=== PATIENT | female | born 2000 | race Caucasian/White ===

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

== ENCOUNTER 2018-03-22 18:16 | Emergency (ER) | payer BC ==
--- NOTE | 2018-03-22 18:59 | PDOC ---
Rapid Medical Evaluation Time Seen by Provider: 03/22/18 18:54 Medical Evaluation: Allergies Allergy/AdvReac Type Severity Reaction Status Date / Time No Known Allergies Allergy Unverified 07/02/17 00:33 03/22/18 18:55 Pt reports a cyst on her L labia starting 4 days ago. Hurts to walk. States it also hurts to touch. Took Tylenol for pain with little relief of symptoms. Exam: Ambulatory, NAD Orders: Nothing Pt to proceed to ED for further evaluation Discharge Disposition - Diagnosis Cyst - Referrals - Patient Instructions - Post Discharge Activity
[2018-03-22 19:00] VITALS: BP 119/88; PULSE 103; TEMP 99; BMI 33.6
--- NOTE | 2018-03-22 19:29 | PDOC ---
History of Present Illness - General Chief Complaint: Abscess Boil Stated Complaint: PAIN Time Seen by Provider: 03/22/18 18:54 History Source: Patient Exam Limitations: Clinical Condition - History of Present Illness Initial Comments: 03/22/18 19:24 Patient with no significant past medical history present with complain of swelling and redness to left vulvar which has been worsening the last 3 days. Denies vaginal discharge or rash. Patient report shaves her vulvar area. Denies any other symptoms Timing/Duration: other (3 days) Past History - Past Medical History Allergies/Adverse Reactions: Allergies Allergy/AdvReac Type Severity Reaction Status Date / Time No Known Allergies Allergy Unverified 03/22/18 18:58 Home Medications: Ambulatory Orders Norgestimate-Ethinyl Estradiol [Sprintec 28 Day Tablet] 1 each PO DAILY Sertraline HCl [Zoloft] 100 mg PO DAILY 07/02/17 Cephalexin [Keflex] 500 mg PO BID 7 Days #14 capsule 03/22/18 Ibuprofen 800 mg PO Q8H PRN #20 tablet 03/22/18 Sulfamethoxazole/Trimethoprim [Bactrim Ds -] 1 tab PO BID #14 tablet 03/22/18 COPD: No Psychiatric Problems: Yes (ANXIETY) - Immunization History Immunization Up to Date: Yes - Suicide/Smoking/Psychosocial Hx Smoking History: Never smoked Hx Alcohol Use: No Drug/Substance Use Hx: No Review of Systems - Review of Systems Able to Perform ROS?: Yes Is the patient limited Burmese proficient: No Constitutional: No: Chills, Fever Respiratory: No: Symptoms reported Cardiac (ROS): No: Symptoms Reported ABD/GI: No: Symptoms Reported : Yes: Pain (left vulva), Other (left vulva swelling and pain). No: Burning, Dysuria, Discharge, Urgency Integumentary: Yes: Erythema (left vulva area), Other (swelling to left vulva area) *Physical Exam - Vital Signs Last Vital Signs Temp Pulse Resp BP Pulse Ox 99.0 F 103 H 18 119/88 100 03/22/18 18:58 03/22/18 18:58 03/22/18 18:58 03/22/18 18:58 03/22/18 18:58 - Physical Exam Comments: 03/22/18 19:30 GENERAL: Well developed, well nourished. Awake and alert. No acute distress. CARDIOVASCULAR: Regular rate and rhythm. No murmurs, rubs, or gallops. Distal pulses are 2+ and symmetric. PULMONARY: No evidence of respiratory distress. Lungs clear to auscultation bilaterally. No wheezing, rales or rhonchi. ABDOMINAL: Soft. Non-tender. Non-distended. No rebound or guarding. No organomegaly. Normoactive bowel sounds. SKIN: Moderate erythema to left side of vulva and mons pubis with mild vulva swelling. No induration or visible abscess or cyst. NEUROLOGICAL: Alert, awake, appropriate. Gait is normal without ataxia. PSYCHIATRIC: Cooperative. Good eye contact. Appropriate mood and affect. General Appearance: Yes: Nourished, Appropriately Dressed. No: Apparent Distress Medical Decision Making - Medical Decision Making 03/22/18 19:32 Patient with no significant past medical history present with complain of vulvar pain, swelling and redness. Exam significant for moderate erythema to left side of vulvar and mild swelling consistent with cellulitis. No evidence of abscess or induration. Patient is stable for outpatient treatment on Keflex and Bactrim with Motrin for pain and [facility] follow-up *DC/Admit/Observation/Transfer Diagnosis at time of Disposition: Vulval cellulitis - Discharge Dispostion Disposition: HOME Condition at time of disposition: Stable Decision to Admit order: No - Prescriptions Prescriptions: Cephalexin [Keflex] 500 mg PO BID 7 Days #14 capsule Ibuprofen 800 mg PO Q8H PRN #20 tablet PRN Reason: pain Sulfamethoxazole/Trimethoprim [Bactrim Ds -] 1 tab PO BID #14 tablet - Referrals Referrals: Samir Suh MD [Staff Physician] - - Patient Instructions Printed Discharge Instructions: Cellulitis Additional Instructions: Take medications as prescribed. Follow up with preferred RESIDENTIAL DIRECTOR for reassessment as soon as possible 3-4 days - Post Discharge Activity
== END 2018-03-22 19:37 | disposition home or self-care (01) ==
LOC: JERFT 18:16
DX: N76.2 Acute vulvitis (principal)
CPT/HCPCS: 99281-25

== ENCOUNTER 2018-08-12 22:15 | Emergency (ER) | payer BC ==
--- NOTE | 2018-08-12 22:55 | PDOC ---
History of Present Illness - General Chief Complaint: Tachycardia Stated Complaint: POSSIBLE ALLERGIC REACTION Time Seen by Provider: 08/12/18 22:35 History Source: Patient, EMS, Old Records Exam Limitations: No Limitations - History of Present Illness Initial Comments: HPI: 17 y/o female BIBEMS to [facility] complaining of rapid heart rate, palpitations, and an indescribable sensation. Reports she was drinking a coconut alcoholic drink that her boyfriend made for her at the [employer], where he works as a route delivery driver. She felt her throat itch and her face became flushed, so an ambulance was called. The EMS crew administered 50mg of Benadryl. Shortly after receiving the medication, she developed the palpitations, shortness of breath, and the indescribable sensation. Per EMS report, the station engineer main line appreciated SVT on the monitor and administered 6m of Adenosine. The rate slowed to sinus tachycardia. No EKG strip was provided by crew. At time of interview, pt reports feeling mild palpitations but much improved over symptoms in the ambulance. Denies a h/o of similar symptoms. No personal or familial history of arrhythmia. No familial history of sudden or unexplained swimming deaths. Pt denies any known medication, food, or environmental allergies. Pt denies persistent symptoms of breathlessness. Takes OCP. No recent travel or periods of immobilization. No leg swelling or tenderness. No personal or familial history of blood clots. Social Hx: - EtoH: Drank tonight - Tobacco: Denies - Street Drugs: Denies using marijuana in the past several months. Denies any additional substances tonight. Medical Hx: - Anxiety, managed with Lexapro. Surgical Hx: - None Past History - Past Medical History Allergies/Adverse Reactions: Allergies Allergy/AdvReac Type Severity Reaction Status Date / Time No Known Allergies Allergy Verified 08/12/18 22:37 Home Medications: Ambulatory Orders Norgestimate-Ethinyl Estradiol [Sprintec 28 Day Tablet] 1 each PO DAILY Sertraline HCl [Zoloft] 100 mg PO DAILY 07/02/17 Cephalexin [Keflex] 500 mg PO BID 7 Days #14 capsule 03/22/18 Ibuprofen 800 mg PO Q8H PRN #20 tablet 03/22/18 Sulfamethoxazole/Trimethoprim [Bactrim Ds -] 1 tab PO BID #14 tablet 03/22/18 COPD: No Psychiatric Problems: Yes (ANXIETY) - Immunization History Immunization Up to Date: Yes - Suicide/Smoking/Psychosocial Hx Smoking History: Never smoked Have you smoked in the past 12 months: No Information on smoking cessation initiated: No Hx Alcohol Use: Yes (Socially) Drug/Substance Use Hx: No Review of Systems - Review of Systems Able to Perform ROS?: Yes Comments:: In addition to that documented in the HPI above, the additional ROS was obtained : Constitutional: Denies fevers or chills Head: Denies vision changes ENMT: Denies sore throat CV: Per HPI Resp: Denies SOB at time of interview GI: Denies vomiting or diarrhea : Denies painful urination MSK: Denies recent trauma Skin: Denies new rashes Neuro: Denies new numbness or tingling or weakness Endocrine: Denies polyuria Heme: Denies bleeding or bruising *Physical Exam - Vital Signs Last Vital Signs Temp Pulse Resp BP Pulse Ox 98.8 F 142 H 27 H 145/79 100 08/12/18 22:15 08/12/18 22:15 08/12/18 22:15 08/12/18 22:15 08/12/18 22:15 - Physical Exam Comments: Constitutional: Well-developed, well-nourished adult female in no acute distress or obvious discomfort. Obese body habitus. Found semi-fowlers on hospital bed. Alert and oriented x4. Answered all questions appropriately and completely. Speech was non-labored, non-pressured. Head: Normocephalic. No obvious external signs of trauma. Eyes: PERRL. Sclerae white.. Ears: Hearing grossly intact. Nose: No nasal discharge. Neck: Supple, trachea is midline. Cardiovascular / Chest: Tachycardic rate and regular rhythm. No murmur, rubs, clicks, or gallops. Peripheral pulses: radial pulses full. Respiratory: Breathing unlabored. Equal chest rise and fall. Clear to auscultation bilaterally. No stridor, no wheezing, no rhonchi. Gastrointestinal: abdomen is soft, non-tender, non-distended. Neuro: Alert and oriented. Moving all four extremities spontaneously. Gait normal. Observed walking unassisted through the department without difficulty. Skin: Warm, dry, and intact. Psych: Affect: appropriate. Mood: normal. Moderate Sedation - Procedure Monitoring Vital Signs: Procedure Monitoring Vital Signs Temperature 98.8 F 08/12/18 22:15 Pulse Rate 142 H 08/12/18 22:15 Respiratory Rate 27 H 08/12/18 22:15 Blood Pressure 145/79 08/12/18 22:15 O2 Sat by Pulse Oximetry (%) 100 08/12/18 22:15 Medical Decision Making - Medical Decision Making EKG Strips sent by [facility]: Initial EKG: Final EKG: MDM: *Reviewed vital signs, nursing notes, and prior visit documentation (if available). 17 y/o female presenting with tachycardia and resolving palpitations, SOB, and indescribable sensation after receiving Benadryl and Adenosine. Triage vitals remarkable for tachycardia without hypotension. Sinus tachycardia noted on the electronic device monitor. Physical exam as described above. Suspect possible adverse reaction to Benadryl. Will obtain UDS and UPreg. Ordered EKG and IVFB. Will trend vitals and monitor cardiac activity on continuous telemetry. 12-lead EKG revealed a sinus tachycardia with a ventricular rate of 117 BPM. Normal axis. Normal intervals. No ST segment elevation or depression. No delta waves. No pathologic Q waves. No signs of Brugada. [facility] was able provide a video of pts EKG. Initial rhythm prior to Adenosine was a sinus tachycardia at a rate estimated to be 160-170 bpm. No strip showing rhythm change during medication administration. Last strip showed a sinus tachycardia at rate estimated to be 120 bpm. (See above) UDS kidd negative. UPreg negative. Tachycardia continues to improve. Will continue to monitor. Pt signed out to resident Dr. Vera after she was verbally appraised of the pts HPI, current ED course, and plan of management. Will follow tend of vitals. *DC/Admit/Observation/Transfer Diagnosis at time of Disposition: Tachycardia - Discharge Dispostion Condition at time of disposition: Fair - Referrals - Patient Instructions - Post Discharge Activity
[2018-08-12 22:59] VITALS: BP 145/79; PULSE 142; TEMP 98.8; BMI 35.4
[2018-08-12] MEDS ORDERED: SODIUM CHLORIDE 0.9% 500 ML INFUS.BAG IV ONE (23:00)
[2018-08-12 23:39] LABS: COCAINE, UR NEGATIVE ng/ml (CUTOFF=300); METHADONE, UR NEGATIVE ng/ml (CUTOFF=300); OPIATES, URI NEGATIVE ng/ml (CUTOFF=300); PHENCYCLIDINE,URINE NEGATIVE ng/ml (CUTOFF=25); URINE AMPHETAMINES NEGATIVE ng/ml (CUTOFF=500); URINE BARBITURATES NEGATIVE ng/ml (CUTOFF=200); URINE BENZODIAZEPINES NEGATIVE ng/ml (CUTOFF=200)
--- NOTE | 2018-08-12 23:41 | PDOC ---
Attending Attestation - HPI HPI: The patient is a 17 year old female, with no significant past medical history, who presents to the emergency department via EMS for an allergic reaction. As per patient, she had an alcoholic beverage which contained coconut liqueur and immediately began feeling flushed and had difficulty breathe. As per EMS, patient was given Benadryl and Adenosine. She denies recent fevers, chills, headache or dizziness. She denies recent nausea, vomit, diarrhea or constipation. She denies recent dysuria, frequency, urgency or hematuria. She denies recent chest pain or shortness of breath. Allergies: Cheese. - Physicial Exam PE: 08/13/18 00:37 GENERAL: Well-appearing, well-nourished. No apparent distress. HEENT: Normocephalic, atraumatic. PERRL, EOM intact. CARDIOVASCULAR: +Tachycardic. Normal S1, S2. Regular rhythm. PULMONARY: Clear to auscultation bilaterally. ABDOMEN: Soft, non-distended, non-tender. EXTREMITIES: Normal ROM in all four extremities. No gross deformities. SKIN: Warm, dry. No rash NEUROLOGICAL: No focal neurological deficits. <Sebas Matamoros - Last Filed: 08/13/18 00:36> - Resident Resident Name: Wily Negrete - ED Attending Attestation I have performed the following: I have examined & evaluated the patient, The case was reviewed & discussed with the resident, I agree w/resident's findings & plan, Exceptions are as noted - Medical Decision Making 08/13/18 01:37 pt received IV benadryl en route pt has no hives,no respiratory distress-no wheezing,no dypsnea,no chest pain ekg was sinus tachycardia @ 115 uvula is midline /lungs clear -pt is comfortable imp: food allergy resolved d/c home <Marely Reese - Last Filed: 08/13/18 01:41> Attestations - Attestations 08/13/18 00:37 Documentation prepared by Sebas Matamoros, acting as medical communication specialist for Marely Reese MD. <Sebas Matamoros - Last Filed: 08/13/18 00:36>
--- NOTE | 2018-08-13 00:33 | PDOC ---
*Physical Exam - Vital Signs Last Vital Signs Temp Pulse Resp BP Pulse Ox 98.8 F 142 H 27 H 145/79 100 08/12/18 22:15 08/12/18 22:15 08/12/18 22:15 08/12/18 22:15 08/12/18 22:15 ED Treatment Course - ADDITIONAL ORDERS Additional order review: Laboratory Results 08/12/18 08/12/18 23:15 23:15 Urine HCG, Qual Negative Opiates Screen Negative Methadone Screen Negative Barbiturate Screen Negative Phencyclidine Screen Negative Ur Amphetamines Screen Negative MDMA (Ecstasy) Screen Negative Benzodiazepines Screen Negative Cocaine Screen Negative U Marijuana (THC) Screen Negative - Medications Given in the ED: ED Medications Discontinued Medications Generic Name Dose Route Start Last Admin Trade Name Leia PRN Reason Stop Dose Admin Sodium Chloride 1,000 ml 08/12/18 23:00 08/12/18 23:03 Normal Saline - IV 08/12/18 23:01 1,000 ml ONCE ONE Administration Medical Decision Making - Medical Decision Making Patient signed out by Dr. Negrete 17yo F with tachycardia. Receiving 1L NS. Pending vitals recheck and reassessment. 08/13/18 00:31 HR 121, 1L NS ordered Updated patient's mother over the phone per patient's request 08/13/18 01:06 HR 115 Patient feels she is at her baseline Plan to discharge 08/13/18 01:42 *DC/Admit/Observation/Transfer Diagnosis at time of Disposition: Tachycardia - Discharge Dispostion Condition at time of disposition: Fair - Referrals - Patient Instructions Printed Discharge Instructions: DI for Tachycardia Additional Instructions: You came into the ED for a high heart rate. Our workup did not indicate acute pathology. Other than the high heart rate, your EKG was normal. We gave you fluids which improved your symptoms. Follow-up with you primary care physician this week to discuss this ED visit and to further evaluate your symptoms. Your care is not complete until you do so. Call and make an appointment. Immediate medical attention is required if: you pass out, have any chest pain, shortness of breath, severe headaches, changes in vision, focal numbness or weakness, any severe abdominal pain, any black tarry stool, or any new or concerning symptoms. If you think you are having an emergency, call for emergency medical services or present to the emergency department right away. - Post Discharge Activity
[2018-08-13] MEDS ORDERED: SODIUM CHLORIDE 1,000 ML IV STA (00:44)
--- NOTE | 2018-08-13 11:20 | EKG ---
Test Reason : Blood Pressure : / mmHG Vent. Rate : 117 BPM Atrial Rate : 117 BPM P-R Int : 144 ms QRS Dur : 070 ms QT Int : 338 ms P-R-T Axes : 051 049 019 degrees QTc Int : 471 ms SINUS TACHYCARDIA OTHERWISE NORMAL ECG NO PREVIOUS ECGS AVAILABLE Confirmed by SONDRA KOEHLER MD ([id number]) on 08/13/2018 11:19:53 AM Referred By: Confirmed By:SONDRA KOEHLER MD
== END 2018-08-13 01:55 | disposition home or self-care (01) ==
LOC: JER 22:15
PROC: 3E0337Z Introduction of Electrolytic and Water Balance Substance into Peripheral Vein, Percutaneous Approach (ICD-10-PCS; principal; 2018-08-12)
DX: R00.0 Tachycardia, unspecified (principal); R00.2 Palpitations; F41.9 Anxiety disorder, unspecified
CPT/HCPCS: 80307; 84703; 93005; 93010; 99282-25; J7030